=== PATIENT | male | born 1990 | race Two or more races ===

== ENCOUNTER 2020-08-07 07:59 | Outpatient (CLI) | payer OTHER | END 2020-08-07 08:00 | disposition home or self-care (01) | LOC: NUCLEAR 07:59 | PROVIDERS: ATTEND Family Medicine | DX: E04.1 Nontoxic single thyroid nodule (principal) | CPT/HCPCS: 78012; A9531 ==

== ENCOUNTER 2020-08-08 08:42 | Outpatient (CLI) | payer OTHER | END 2020-08-08 08:56 | disposition home or self-care (01) | LOC: NUCLEAR 08:42 | PROVIDERS: ATTEND Family Medicine | DX: E04.1 Nontoxic single thyroid nodule (principal) | CPT/HCPCS: 78013; A9512 ==